=== PATIENT | male | born 1965 | race Caucasian/White ===

== ENCOUNTER → 2017-08-08 | Outpatient (CLI) | payer OTHER ==
--- NOTE | 2017-08-08 10:07 | RAD ---
INDICATION: Low back pain and worsening stiffness. TECHNIQUE: Sagittal T1, sagittal T2, sagittal STIR, axial T1, and axial T2 sequences are provided. No comparison is available. FINDINGS: There is 6 mm of anterolisthesis at L5-S1. There is otherwise no malalignment. There is no worrisome marrow lesion. There is minimal edema and fatty replacement of the endplates at L5-S1. There is disc desiccation and narrowing of disc height at L5-S1. There is disc desiccation at L1-L2. The conus medullaris is normal in signal intensity and in position. Subcutaneous edema is noted. The numbering system assumes 5 lumbar type vertebral bodies. Findings by individual level are as follows: L1-L2: There is a mild disc bulge without canal or foraminal compromise. L2-L3: There is a minimal disc bulge without canal or foraminal compromise. L3-L4: There is no canal or foraminal compromise. L4-L5: There is minimal facet hypertrophy without canal or foraminal compromise. L5-S1: Bilateral L5 pars defects are noted. In addition to the anterolisthesis there is a disc bulge and facet hypertrophy. There is no canal stenosis. There is [id number] bilateral foraminal narrowing with both exiting nerve roots flattened. IMPRESSION: 1. Grade 1 spondylolisthesis at L5-S1 secondary to bilateral L5 pars defects. Foraminal narrowing at this level. 2. Additional minimal degenerative disc disease and facet hypertrophy without any high-grade canal or foraminal compromise. Electronically signed by: Horacio Zelaya MD (08/08/2017 10:03 AM) [id number]
== END | disposition home or self-care (01) ==
LOC: MRI 07:53
PROVIDERS: ATTEND Family Medicine
DX: M43.17 Spondylolisthesis, lumbosacral region (principal); M51.37 Other intervertebral disc degeneration, lumbosacral region
CPT/HCPCS: 72148